=== PATIENT | female | born 1995 | race Caucasian/White ===

== ENCOUNTER 2024-02-14 14:09 | Inpatient (IN) ==
[2024-02-14] MEDS: Lactated Ringers 1000 ml BAG 1,000 ML IV ONE (15:00)
[2024-02-14] MEDS ORDERED: Lidocaine 1% VIAL 10 MG/ML 30 ML VIAL INJ PRN (15:33)
[2024-02-14 15:40] LABS: Hematocrit 39.4 % (35-45); Hemoglobin 13.5 g/dL (11.5-14.3); Mean Corpuscular Hemoglobin 31.9 pg (27-33); Mean Corpuscular Hgb Conc 34.3 g/dL (31-36); Red Blood Count 4.23 10^6/uL (3.63-4.92); Red Cell Distribution Width 13.3 % (12-17); White Blood Count 12.5 10^3/uL (3.8-11.8)
[2024-02-14 15:44] LABS: Urine Benzodiazepine Screen None Detected (None Detect); Urine Cannabinoids Screen None Detected (None Detect); Urine Opiates Screen None Detected (None Detect)
[2024-02-14] MEDS: Lactated Ringers 1000 ml BAG 1,000 ML IV SCH (16:00)
[2024-02-14 16:19] LABS: Mean Platelet Volume 13.3 fL (7.5-11.2); Platelet Count 62 10^3/uL (150-450)
[2024-02-14] MEDS: OBEPIDURAL (200 ML) 200 ML EPIDURAL ONE (16:29)
[2024-02-14] MEDS: Buffered Lidocaine 1% SYRIN 1 ml INTRADERM ONE (16:29)
[2024-02-14] MEDS: Lidocaine 1.5% EPI 1:200,000 30 ML SDV ONE (16:33)
[2024-02-14 16:35] LABS: ABS Lymphocytes 1.4 10^3/uL (1.0-4.8); ABS Monocytes 0.3 10^3/uL (0.0-0.9); ABS Neutrophils 12.7 10^3/uL (1.5-7.6); ABS Nucleated RBC 0.01 10^3/ul; Hematocrit 39.9 % (35-45); Hemoglobin 13.4 g/dL (11.5-14.3); Lymphocyte % 9.8 %; Mean Corpuscular Hemoglobin 31.4 pg (27-33); Mean Corpuscular Hgb Conc 33.7 g/dL (31-36); Mean Corpuscular Volume 93.2 fL (80-97); Mean Platelet Volume 13.1 fL (7.5-11.2); Platelet Count 64 10^3/uL (150-450); Red Blood Count 4.27 10^6/uL (3.63-4.92); Red Cell Distribution Width 13.6 % (12-17); White Blood Count 14.4 10^3/uL (3.8-11.8)
[2024-02-14 17:48] LABS: Urine Appearance Clear; Urine Bilirubin Negative (Negative); Urine Blood 1+ (Negative); Urine Color Yellow; Urine Glucose Negative (Negative); Urine Ketones 4+ (Negative); Urine Nitrite Negative (Negative); Urine Protein 1+ (>=30 mg/dL) (Negative); Urine Specific Gravity 1.029 (1.002-1.030); Urine Urobilinogen Negative (Negative); Urine pH 6.5 (5.0-8.0)
[2024-02-14 17:49] LABS: Urine Bacteria Absent /HPF (Absent); Urine Red Blood Cell 3+(>10/hpf) /HPF (0-Trace); Urine Squamous Epithelial Cell Present /HPF (Absent); Urine White Blood Cell Trace(0-5/hpf) /HPF (0-Trace)
[2024-02-14] MEDS ORDERED: Glycerin ADULT 2.4 gm SUPP PR PRN (22:22)
[2024-02-14] MEDS: Witch Hazel PAD JAR TOPICAL PRN (23:55)
[2024-02-14] MEDS: Dibucaine 1% OINT 28.35 GM TUBE PR PRN (23:55)
[2024-02-15] MEDS: Oxytocin in LR 20,000 MILLI.UNIT/1,000 ML BAG IV SCH (04:34)
[2024-02-15 06:19] LABS: ABS Basophils 0.1 10^3/uL (0.0-0.1); ABS Lymphocytes 1.8 10^3/uL (1.0-4.8); ABS Monocytes 0.9 10^3/uL (0.0-0.9); ABS Neutrophils 12.8 10^3/uL (1.5-7.6); Eosinophil % 0.1 %; Hematocrit 32.5 % (35-45); Hemoglobin 11.2 g/dL (11.5-14.3); Lymphocyte % 11.8 %; Mean Corpuscular Hgb Conc 34.4 g/dL (31-36); Mean Corpuscular Volume 92.8 fL (80-97); Mean Platelet Volume 13.8 fL (7.5-11.2); Platelet Count 56 10^3/uL (150-450); Red Cell Distribution Width 13.2 % (12-17); White Blood Count 15.6 10^3/uL (3.8-11.8)
[2024-02-15] MEDS ORDERED: Sodium Citrate/Citric Acid LIQ 15 ML UDC PO PRN (06:30)
[2024-02-15] MEDS ORDERED: Phenylephrine 40 mcg/mL 10mL (400mcg) SYRINGE IV PUSH PRN ×2 (06:30)
[2024-02-15] MEDS: Phenylephrine 40 mcg/mL 10mL (400mcg) SYRINGE ONE (06:44)
[2024-02-15] MEDS ORDERED: Lactated Ringers 1000 ml BAG 1,000 ML IV SCH (07:00)
[2024-02-15] MEDS ORDERED: OBEPIDURAL (200 ML) 200 ML EPIDURAL SCH (07:00)
[2024-02-15] MEDS: Lactated Ringers 1000 ml BAG 1,000 ML IV ONE (09:12)
[2024-02-16 07:07] VITALS: BP 129/82
[2024-02-16 08:18] LABS: Hematocrit 33.9 % (35-45); Hemoglobin 11.5 g/dL (11.5-14.3); Mean Corpuscular Hemoglobin 31.5 pg (27-33); Mean Corpuscular Volume 92.8 fL (80-97); Red Blood Count 3.65 10^6/uL (3.63-4.92); Red Cell Distribution Width 13.9 % (12-17); White Blood Count 12.2 10^3/uL (3.8-11.8)
[2024-02-16 08:24] LABS: ABS Basophils 0.1 10^3/uL (0.0-0.1); ABS Eosinophils 0.1 10^3/uL (0.0-0.5); ABS Lymphocytes 2.3 10^3/uL (1.0-4.8); ABS Monocytes 0.6 10^3/uL (0.0-0.9); ABS Neutrophils 9.2 10^3/uL (1.5-7.6); Eosinophil % 0.6 %; Large Platelets Present; Lymphocyte % 18.5 %; Mean Platelet Volume 13.2 fL (7.5-11.2); Platelet Count 63 10^3/uL (150-450)
== END 2024-02-16 15:00 | disposition home or self-care (01) | DRG 560 ==
LOC: MCHOBOUT 14:09 → MCHOB 15:20
PROVIDERS: ADMIT Midwife; ATTEND Midwife